=== PATIENT | male | born 2000 | race Hispanic/Latino ===

== ENCOUNTER 2022-03-17 17:53 | Emergency (ER) | payer OTHER, SELFPAY ==
[2022-03-17 20:39] LABS: Absolute Lymphocytes (CBC) 3.5 K/uL (0.7-4.9); Hematocrit 44.2 % (39.6-49.0); Lymphocytes % 45.4 % (15.3-44.8); MPV 8.5 fL (7.6-11.3); RBC Red Blood Cell Count 4.72 M/uL (4.33-5.43)
[2022-03-17 20:43] LABS: Urine Blood Negative (Negative); Urine Glucose Negative (Negative); Urine Protein 1+ (Negative); Urine Specific Gravity >=1.030 (1.005-1.030); Urine pH 5.5 (5.0-7.0)
[2022-03-17 20:54] LABS: Albumin 4.8 g/dL (3.4-5.0); Potassium 3.9 mmol/L (3.5-5.1)
[2022-03-17 20:58] LABS: Bilirubin Total 0.8 mg/dL (0.2-1.0); Protein, Total 8.2 g/dL (6.4-8.2)
--- NOTE | 2022-03-17 21:42 | ER ---
Nurse's Notes [facility] Name: Aidan Banuelos Age: 22 yrs Sex: Male : 2000 Arrival Date: 03/17/2022 Time: 17:57 Bed Waiting Private MD: Diagnosis: Presentation: 03/17 18:24 Chief complaint: Patient states: RLQ pain/pressure that began x 2 days ago, denies NVD; vg1 states last BM was last night and denies urinary symptoms. Coronavirus screen: Vaccine status: Patient reports being unvaccinated. Client denies travel out of the [place] in the last 14 days. Ebola Screen: Patient denies exposure to infectious person. Patient denies travel to an Ebola-affected area in the 21 days before illness onset. Initial Sepsis Screen: Does the patient meet any 2 criteria? No. Patient's initial sepsis screen is negative. Does the patient have a suspected source of infection? No. Patient's initial sepsis screen is negative. Risk Assessment: Do you want to hurt yourself or someone else? Patient reports no desire to harm self or others. Onset of symptoms was March 15, 2022. 18:24 Method Of Arrival: Ambulatory vg1 18:24 Acuity: KOKI 3 vg1 Triage Assessment: 18:28 General: Appears uncomfortable, Behavior is cooperative, anxious. Pain: Complains of vg1 pain in right lower quadrant. GI: Patient currently denies diarrhea, nausea, vomiting. Historical: - Allergies: 18:28 No Known Allergies; vg1 - Home Meds: 18:28 None [Active]; vg1 - PMHx: 18:28 Bipolar disorder; vg1 - PSHx: 18:28 Appendectomy; vg1 - Immunization history:: Client reports having NOT received the Covid vaccine. - Social history:: Smoking status: Reported history of juuling and/or vaping. Patient uses street drugs, marijuana. Vital Signs: 18:24 BP 131 / 93; Pulse 65; Resp 16; Temp 98.6(O); Pulse Ox 100% on R/A; Weight 58.97 kg; vg1 Height 5 ft. 7 in. (170.18 cm); Pain 0/10; 18:24 Body Mass Index 20.36 (58.97 kg, 170.18 cm) vg1 ED Course: 17:57 Patient arrived in ED. rg4 17:58 Jacob Gupta PA is PHCP. gricelda 17:58 Michael Vicente MD is Attending Physician. [facility] 18:27 Triage completed. vg1 18:28 Arm band placed on. vg1 21:41 Patient's name was called from ER lobby. No response. Unable to locate patient. Will bb disposition as left without being seen by a provider. Administered Medications: No medications were administered Outcome: 21:41 Patient left the ED. bb Signatures: Jacob Gupta PA PA jmm Ballard, Brenda, RN RN bb Merlyn Tan rg4 Leah Tan, RN RN vg1
[2022-03-17 21:58] VITALS: BP 131/93; TEMP 98.6; O2SAT 100
--- NOTE | 2022-03-18 21:41 | EDPHYS ---
Physician Documentation [facility] Name: Aidan Banuelos Age: 22 yrs Sex: Male : 2000 Arrival Date: 03/17/2022 Time: 17:57 Bed Waiting Private MD: MEAGAN Physician Michael Vicente HPI: 03/17 18:26 This 22 yrs old Male presents to ER via Ambulatory with complaints of Flank jmm Pain. 18:26 The patient complains of pain in the right flank. Onset: The symptoms/episode jmm began/occurred gradually, 3 day(s) ago. Modifying factors: The symptoms are alleviated by nothing. the symptoms are aggravated by nothing. Associated signs and symptoms: Pertinent negatives: diarrhea, fever, vomiting. The patient has not experienced similar symptoms in the past. Historical: - Allergies: 18:28 No Known Allergies; vg1 - Home Meds: 18:28 None [Active]; vg1 - PMHx: 18:28 Bipolar disorder; vg1 - PSHx: 18:28 Appendectomy; vg1 - Immunization history:: Client reports having NOT received the Covid vaccine. - Social history:: Smoking status: Reported history of juuling and/or vaping. Patient uses street drugs, marijuana. ROS: 18:26 Constitutional: Negative for fever, chills, and weight loss, Cardiovascular: Negative jmm for chest pain, palpitations, and edema, Respiratory: Negative for shortness of breath, cough, wheezing, and pleuritic chest pain. 18:26 Abdomen/GI: Positive for abdominal pain. 18:26 All other systems are negative. Exam: 18:26 Constitutional: This is a well developed, well nourished patient who is awake, alert, jmm and in no acute distress. Head/Face: atraumatic. Eyes: EOMI, no conjunctival erythema appreciated ENT: Moist Mucus Membranes Neck: Trachea midline, Supple Chest/axilla: Normal chest wall appearance and motion. Cardiovascular: Regular rate and rhythm. No edema appreciated Respiratory: Normal respirations, no respiratory distress appreciated 18:26 Skin: General appearance color normal MS/ Extremity: Moves all extremities, no obvious deformities appreciated, no edema noted to the lower extremities Neuro: Awake and alert Psych: Behavior is normal, Mood is normal, Patient is cooperative and pleasant 18:26 Abdomen/GI: Inspection: abdomen appears normal, Bowel sounds: normal, Palpation: soft, mild abdominal tenderness, in the right lower quadrant. Vital Signs: 18:24 BP 131 / 93; Pulse 65; Resp 16; Temp 98.6(O); Pulse Ox 100% on R/A; Weight 58.97 kg; vg1 Height 5 ft. 7 in. (170.18 cm); Pain 0/10; 18:24 Body Mass Index 20.36 (58.97 kg, 170.18 cm) vg1 MDM: 18:26 Patient medically screened. [facility] 03/17 18:27 Order name: CBC with Diff; Complete Time: 20:45 [facility] 03/17 18:27 Order name: CMP; Complete Time: 21:02 [facility] 03/17 18:27 Order name: Lipase; Complete Time: 21:02 [facility] 03/17 18:27 Order name: IV Saline Lock [facility] 03/17 20:43 Order name: Urine Dipstick-Ancillary; Complete Time: 20:45 [facility] 03/17 18:27 Order name: Labs collected and sent [facility] 03/17 18:27 Order name: Urine Dipstick-Ancillary (obtain specimen) [facility] Administered Medications: No medications were administered Disposition Summary: 03/17/22 21:41 Eloped Disposition: before being seen by provider bb Reason: wait time bb Signatures: Dispatcher [employer] EDMS Jacob Gupta PA PA Jane Earl, RN RN bb Leah Tan, RN RN vg1 Corrections: (The following items were deleted from the chart) 21:13 18:28 Abdomen Pelvis W Con+CT.RAD.BRZ ordered. EDAZ EDMS
== END 2022-03-17 21:41 | disposition left against medical advice (07) ==
LOC: ER 17:53
DX: Z53.21 Procedure and treatment not carried out due to patient leaving prior to being seen by health care provider (principal)
CPT/HCPCS: 36415; 80053; 81003; 83690; 85025; 99281

== ENCOUNTER 2023-03-11 15:29 | Emergency (ER) | payer BC, SELFPAY ==
--- NOTE | 2023-03-11 16:43 | RAD REPORT ---
EXAM DESCRIPTION: CT - Head Brain Wo Cont - 03/11/2023 4:36 pm CLINICAL HISTORY: ringing in ears;Dizziness COMPARISON: No comparisons TECHNIQUE: All CT scans are performed using dose optimization technique as appropriate and may inclu de automated exposure control or mA/KV adjustment according to patient size. FINDINGS: No intracranial hemorrhage, hydrocephalus or extra-axial fluid collection.No areas of brai n edema or evidence of midline shift. The paranasal sinuses and mastoids are clear. The calvarium is intact. IMPRESSION: No acute intracranial abnormality.
[2023-03-11 17:06] LABS: Absolute Lymphocytes (CBC) 2.7 K/uL (0.7-4.9); Lymphocytes % 35.8 % (15.3-44.8); MPV 7.5 fL (7.6-11.3); RBC Red Blood Cell Count 4.68 M/uL (4.33-5.43)
[2023-03-11] MEDS ORDERED: MECLIZINE HCL 12.5 MG TAB ONE (17:17)
[2023-03-11 17:20] LABS: Potassium 3.7 mEq/L (3.5-5.1)
--- NOTE | 2023-03-11 17:45 | ER ---
Nurse's Notes [facility] Name: Aidan Banuelos Age: 23 yrs Sex: Male : 2000 Arrival Date: 03/11/2023 Time: 15:29 Bed IW5 Private MD: Diagnosis: Tinnitus, bilateral;Dizziness and giddiness Presentation: 03/11 16:01 Chief complaint: Patient states: Ears ringing ever since waking up from a nap. States nj1 he doesn't feel good, slightly nauseous, slightly drowsy. "Like if i was taken ambien". Coronavirus screen: Vaccine status: Patient reports being unvaccinated. Ebola Screen: Patient denies travel to an Ebola-affected area in the 21 days before illness onset. Initial Sepsis Screen: Does the patient meet any 2 criteria? No. Patient's initial sepsis screen is negative. Does the patient have a suspected source of infection? No. Patient's initial sepsis screen is negative. Risk Assessment: Do you want to hurt yourself or someone else? Patient reports no desire to harm self or others. Onset of symptoms was March 11, 2023 at 15:00. 16:01 Method Of Arrival: Ambulatory [facility] 16:01 Acuity: KOKI 4 nj1 Historical: - PMHx: 16:04 Bipolar disorder; Anxiety; Depressive disorder; ADHD; ADD; nj1 - PSHx: 16:04 Appendectomy; nj1 - Immunization history:: Client reports having NOT received the Covid vaccine. - Social history:: Smoking status: Reported history of juuling and/or vaping. Patient uses street drugs, marijuana. Assessment: 18:08 Reassessment: Patient appears in no apparent distress at this time. Patient is alert, nj1 oriented x 3, equal unlabored respirations, skin warm/dry/pink. Vital Signs: 16:01 BP 130 / 67; Pulse 79; Resp 16; Temp 97.4(TE); Pulse Ox 100% ; Weight 56.25 kg; Height nj1 5 ft. 7 in. ; Pain 0/10; 16:01 Body Mass Index 19.42 (56.25 kg, 170.18 cm) nj 16:01 Pain Scale: Adult [facility] ED Course: 15:34 Patient arrived in ED. ts1 15:35 Michael Miguel PA is PHCP. cp 15:35 Michael Vicente MD is Attending Physician. cp 16:04 Triage completed. nj1 16:06 Arm band placed on right wrist. nj1 16:37 CT Head Brain wo Cont In Process Unspecified. EDMS 17:06 Basic Metabolic Panel Sent. bc6 17:06 CBC with Diff Sent. bc6 17:06 Inserted saline lock: 20 gauge in left antecubital area, using aseptic technique. bc6 17:42 Deann Campa MD is Referral Physician. cp 18:08 IV discontinued, intact, bleeding controlled. nj1 Administered Medications: 17:13 Drug: Meclizine PO 25 mg Route: PO; nj1 18:01 Follow up: Response: No adverse reaction nj1 Outcome: 17:44 Discharge ordered by . cp 18:08 Discharged to home ambulatory. nj1 18:08 Condition: stable 18:08 Discharge instructions given to patient, Instructed on discharge instructions, follow up and referral plans. medication usage, Demonstrated understanding of instructions, follow-up care, medications, Prescriptions given X 2. 18:09 Patient left the ED. nj1 Signatures: Dispatcher [employer] EDCO Michael Miguel PA PA cp Fide Sinclair bc6 Yajaira De La Cruz, RN RN nj1 Suzette Velasquez, PAS PAS ts1
--- NOTE | 2023-03-11 17:45 | EDPHYS ---
Physician Documentation [facility] Name: Aidan Banuelos Age: 23 yrs Sex: Male : 2000 Arrival Date: 03/11/2023 Time: 15:29 Bed IW5 Private MD: ED Physician Michael Vicente HPI: 03/11 16:25 This 23 yrs old Male presents to ER via Ambulatory with complaints of Ear cp Pain, RINGING IN EAR. 16:25 The patient presents with hearing loss, partial, tinnitus. The complaints affect the cp right ear and left ear. Onset: The symptoms/episode began/occurred today, after waking up from nap. Associated signs and symptoms: Pertinent positives: dizziness, nausea, Pertinent negatives: cough, fever, rhinorrhea, sinus trouble, sore throat. Severity of symptoms: in the emergency department the symptoms are unchanged. Patient reports taking prescribed Ambien medication last night about 2100 and waking up about 0500 this morning and feeling ok. Took a nap this afternoon and upon awakening noticed ringing in ears, dizziness, nausea. Historical: - PMHx: 16:04 Bipolar disorder; Anxiety; Depressive disorder; ADHD; ADD; nj1 - PSHx: 16:04 Appendectomy; nj1 - Immunization history:: Client reports having NOT received the Covid vaccine. - Social history:: Smoking status: Reported history of juuling and/or vaping. Patient uses street drugs, marijuana. ROS: 16:30 Constitutional: Negative for body aches, chills, fever, poor PO intake. cp 16:30 Eyes: Negative for injury, pain, redness, and discharge. cp 16:30 ENT: Positive for hearing loss, tinnitus, Negative for drainage from ear(s), ear pain, sinus congestion, sinus pain, sore throat, difficulty swallowing, difficulty handling secretions. 16:30 Neck: Negative for pain with movement, pain at rest, stiffness. 16:30 Cardiovascular: Negative for chest pain. 16:30 Respiratory: Negative for cough, shortness of breath, wheezing. 16:30 Abdomen/GI: Positive for nausea, Negative for abdominal pain, vomiting, diarrhea, constipation. 16:30 Neuro: Positive for dizziness, headache, Negative for altered mental status, numbness, weakness. 16:30 All other systems are negative. Exam: 16:33 Constitutional: The patient appears in no acute distress, alert, awake, non-toxic, well cp developed, well nourished. 16:33 Head/Face: Normocephalic, atraumatic. cp 16:33 Eyes: Periorbital structures: appear normal, Conjunctiva: normal, no exudate, no injection, Sclera: no appreciated abnormality, Lids and lashes: appear normal, bilaterally. 16:33 ENT: External ear(s): are unremarkable, Ear canal(s): are normal, clear, TM's: bulging, is not appreciated, bilaterally, dullness, bilaterally, erythema, is not appreciated, bilaterally, Nose: is normal, Mouth: Lips: moist, Oral mucosa: pink and intact, moist, Posterior pharynx: is normal, airway is patent, no erythema, no exudate. 16:33 Neck: ROM/movement: is normal, is supple, without pain, no range of motions limitations, no meningismus, no nuchal rigidity. 16:33 Chest/axilla: Inspection: normal. 16:33 Cardiovascular: Rate: normal. 16:33 Respiratory: the patient does not display signs of respiratory distress, Respirations: normal, no use of accessory muscles, no retractions, labored breathing, is not present, Breath sounds: are clear throughout, no decreased breath sounds, no stridor, no wheezing. 16:33 Abdomen/GI: Inspection: abdomen appears normal. 16:33 Back: pain, is absent, ROM is normal. 16:33 Neuro: Orientation: to person, place \T\ time. Mentation: is normal, Cerebellar function: is grossly normal, Motor: moves all fours, strength is normal, Sensation: is normal, Gait: is steady, at a normal pace, without difficulty. Vital Signs: 16:01 BP 130 / 67; Pulse 79; Resp 16; Temp 97.4(TE); Pulse Ox 100% ; Weight 56.25 kg; Height nj1 5 ft. 7 in. ; Pain 0/10; 16:01 Body Mass Index 19.42 (56.25 kg, 170.18 cm) [facility] 16:01 Pain Scale: Adult nj MDM: 16:09 Patient medically screened. [facility] 16:30 Differential diagnosis: otitis media, otitis externa, ruptured TM, acute otalgia, cp cerumen impaction, barotrauma , vertigo, sinusitis. 17:44 Data reviewed: vital signs, nurses notes, lab test result(s), radiologic studies, CT cp scan, and as a result, I will discharge patient. 17:44 I considered the following discharge prescriptions or medication management in the emergency department Medications were administered in the Emergency Department. See MAR. Counseling: I had a detailed discussion with the patient and/or guardian regarding: the historical points, exam findings, and any diagnostic results supporting the discharge/admit diagnosis, lab results, radiology results, to return to the emergency department if symptoms worsen or persist or if there are any questions or concerns that arise at home. Response to treatment: the patient's symptoms have mildly improved after treatment, and as a result, I will discharge patient. 03/11 16:19 Order name: Basic Metabolic Panel; Complete Time: 17:41 03/11 17:41 Interpretation: Normal except: ANION GAP 3.7. 03/11 16:19 Order name: CBC with Diff; Complete Time: 17:41 03/11 17:42 Interpretation: Reviewed. 03/11 16:19 Order name: CT Head Brain wo Cont; Complete Time: 16:47 03/11 16:19 Order name: EKG; Complete Time: 16:20 03/11 16:19 Order name: Cardiac monitoring 03/11 16:19 Order name: EKG - Nurse/Tech; Complete Time: 17:05 03/11 16:19 Order name: IV Saline Lock; Complete Time: 17:05 03/11 16:19 Order name: Labs collected and sent; Complete Time: 17:06 03/11 16:19 Order name: O2 Per Protocol 03/11 16:19 Order name: O2 Sat Monitoring cp Administered Medications: 17:13 Drug: Meclizine PO 25 mg Route: PO; nj1 18:01 Follow up: Response: No adverse reaction nj1 Disposition Summary: 03/11/23 17:44 Discharge Ordered Location: Home cp Problem: new cp Symptoms: have improved cp Condition: Stable cp Diagnosis - Tinnitus, bilateral cp - Dizziness and giddiness cp Followup: cp - With: Deann Campa MD - When: 2 - 3 days - Reason: Recheck today's complaints Discharge Instructions: - Discharge Summary Sheet cp - Dizziness cp - Tinnitus cp Forms: - Medication Reconciliation Form cp - Thank You Letter cp - Antibiotic Education cp - Prescription Opioid Use cp - Work release form nj1 Prescriptions: - Meclizine 25 mg Oral Tablet - take 1 tablet by ORAL route every 8 hours As needed; 30 tablet; Refills: 0, cp Product Selection Permitted - Zofran 4 mg Oral Tablet - take 1 tablet by ORAL route every 12 hours As needed; 20 tablet; Refills: 0, cp Product Selection Permitted Signatures: Dispatcher [employer] EDMichael Esparza MD MD cha Page, Corey PA PA Yajaira Cr, RN RN nj1
[2023-03-11 18:22] VITALS: BP 130/67; TEMP 97.4; O2SAT 100
--- NOTE | 2023-03-14 07:14 | EKG ---
Test Date: 2023-03-11 Test Time: 17:01:25 Night Supervisor: RICHARD MEASUREMENT RESULTS: Intervals: Rate: 74 MN: 150 QRSD: 90 QT: 372 QTc: 412 [place]: P: 78 MN: 150 QRS: 87 T: 76 INTERPRETIVE STATEMENTS: Normal sinus rhythm Normal ECG Compared to ECG 10/17/2014 20:46:49 No significant changes Electronically Signed On 03-14-23 07:07:31 CDT by Usman Cisse
== END 2023-03-11 18:09 | disposition home or self-care (01) ==
LOC: ER 15:29
DX: H93.13 Tinnitus, bilateral (principal); R42 Dizziness and giddiness
CPT/HCPCS: 93005; 85025; 80048; 36415; 70450; 99284; J8597